=== PATIENT | male | born 1960 | race Caucasian/White ===

== ENCOUNTER 2018-04-29 05:53 | Emergency (ER) | payer MEDICAID ==
[~2018-04-29] VITALS: Ht 157.5 cm; Wt 45.9 kg
[~2018-04-29 05:53] MED LIST: LEVO50TA PO; LEVO50TA8 PO; OMEP20TA5 PO; ONDA4TAB6 PO
[2018-04-29 05:59] VITALS: BP 130/75
[2018-04-29] MEDS ORDERED: ondansetron 4mg rapidly disintigrating tab PO ONE (06:25)
[2018-04-29] MEDS ORDERED: acetaminophen 325mg tablet PO ONE (06:25)
== END 2018-04-29 06:46 | disposition home or self-care (01) ==
LOC: ER 05:54
DX: R11.0 Nausea (principal); E86.0 Dehydration; M79.1 Myalgia; E03.9 Hypothyroidism, unspecified; G89.29 Other chronic pain; Z79.899 Other long term (current) drug therapy; Z60.2 Problems related to living alone
CPT/HCPCS: 99283

== ENCOUNTER 2018-05-09 03:31 | Emergency (ER) | payer MEDICAID ==
[~2018-05-09] VITALS: Ht 157.5 cm; Wt 44.1 kg
[2018-05-09] MEDS ORDERED: GABA-532 PO (04:26)
[2018-05-09] MEDS ORDERED: CARV-50 PO (04:26)
[2018-05-09] MEDS ORDERED: KEP500T PO (04:26)
[2018-05-09] MEDS ORDERED: AMLO-93 PO (04:26)
[2018-05-09 06:56] LABS: BASOPHILS % (AUTO) 0.5 % (0-1); EOSINOPHILS # (AUTO) 0.2 X10'3 (0-0.9); EOSINOPHILS % (AUTO) 1.7 % (0-6); HEMATOCRIT 44.8 % (42.0-52.0); HEMOGLOBIN 15.5 g/dl (14.0-17.9); LYMPHOCYTES # (AUTO) 2.4 X10'3 (1.1-4.8); LYMPHOCYTES % (AUTO) 25.7 % (21-51); MEAN CORPUSCULAR HEMOGLOBIN 32.1 PG (27.0-31.0); MEAN CORPUSCULAR HGB CONC 34.6 % (33.0-36.5); MEAN CORPUSCULAR VOLUME 92.8 FL (78-98); MEAN PLATELET VOLUME 6.7 FL (7.4-10.4); MONOCYTES # (AUTO) 0.5 X10'3 (0-0.9); MONOCYTES % (AUTO) 5.1 % (2-12); NEUTROPHILS # (AUTO) 6.3 X10'3 (1.8-7.7); PLATELET COUNT 371 X10'3 (140-440); RED BLOOD COUNT 4.83 X10'6 (4.70-6.10); RED CELL DISTRIBUTION WIDTH 13.9 % (11.5-14.5); WHITE BLOOD COUNT 9.4 X10'3 (4.5-11.0)
[2018-05-09 07:10] LABS: ALANINE AMINOTRANSFERASE 39 U/L (12-78); ALBUMIN 4.1 G/DL (3.4-5.0); ALBUMIN/GLOBULIN RATIO 0.9 (1.1-1.5); ALKALINE PHOSPHATASE 59 IU/L (46-116); ANION GAP 11 (8-16); ASPARTATE AMINO TRANSFERASE 34 U/L (10-37); BILIRUBIN,TOTAL 0.9 MG/DL (0.1-1.0); BLOOD UREA NITROGEN 25 MG/DL (7-18); BUN/CREATININE RATIO 22.3 (5.4-32.0); CALCIUM 8.8 MG/DL (8.5-10.1); CHLORIDE 89 MMOL/L (99-107); CREATININE 1.12 MG/DL (0.60-1.10); GLUCOSE 68 MG/DL (70-104); LIPASE 111 U/L (73-393); POTASSIUM 3.5 MMOL/L (3.5-5.1); SODIUM 127 MMOL/L (135-145); TOTAL CARBON DIOXIDE 27.5 MMOL/L (24-32); TOTAL PROTEIN 8.9 G/DL (6.4-8.2); eGFR 68 ML/MIN
[2018-05-09] MEDS ORDERED: normal saline 1000ML IV soln IVB ONE (07:40)
[2018-05-09 10:04] VITALS: BP 138/77
== END 2018-05-09 10:06 | disposition home or self-care (01) ==
LOC: ER 03:32
DX: E87.1 Hypo-osmolality and hyponatremia (principal); R10.9 Unspecified abdominal pain; F17.200 Nicotine dependence, unspecified, uncomplicated; I10 Essential (primary) hypertension; E03.9 Hypothyroidism, unspecified; G89.29 Other chronic pain; Z79.899 Other long term (current) drug therapy; Z60.2 Problems related to living alone
CPT/HCPCS: 36415; 80053; 83690; 85025; 96360; 99284; J7030

== ENCOUNTER 2018-08-26 23:11 | Emergency (ER) | payer MEDICAID ==
[~2018-08-26] VITALS: Ht 157.5 cm; Wt 51.0 kg
[~2018-08-26 23:11] MED LIST changes: +AMLO-93 PO; +CARV-50 PO; +GABA-532 PO; +KEP500T PO; -LEVO50TA PO; -LEVO50TA8 PO; -OMEP20TA5 PO; -ONDA4TAB6 PO; +PERM60CR19 TP
[2018-08-26 23:13] VITALS: BP 140/93
== END 2018-08-26 23:42 | disposition home or self-care (01) ==
LOC: ER 23:12
DX: B86 Scabies (principal); I10 Essential (primary) hypertension; E03.9 Hypothyroidism, unspecified; G89.29 Other chronic pain
CPT/HCPCS: 99281

== ENCOUNTER 2018-09-24 08:06 | Emergency (ER) | payer MEDICAID ==
[~2018-09-24] VITALS: Ht 157.5 cm; Wt 49.8 kg
[2018-09-24 08:14] VITALS: BP 156/84
[2018-09-24] MEDS ORDERED: acetaminophen 325mg tablet PO ONE (08:50)
[2018-09-24] MEDS ORDERED: orphenadrine citrate 60mg/2ml inj. IM ONE (08:50)
[2018-09-24] MEDS ORDERED: ketorolac trometh inj. 60 MG/2 ML VIAL IM ONE (08:50)
[2018-09-24 09:58] LABS: CLARITY,URINE CLEAR (Clear); COLOR,URINE YELLOW (Yellow); GLUCOSE, URINE NEGATIVE (Neg); KETONES,URINE NEGATIVE (Neg); LEUKOCYTE ESTERASE ,URINE NEGATIVE (Neg); NITRITES, URINE NEGATIVE (Neg); OCCULT BLOOD,URINE TRACE-LYSED (Neg); PROTEIN,URINE NEGATIVE (Neg); UROBILINOGEN,URINE 0.2 E.U/dL (0.2-1.0)
[2018-09-24 10:01] LABS: UA COLLECTION TYPE URINAL
[2018-09-24 10:08] LABS: BACTERIA,URINE NONE SEEN /HPF (Neg); RBC,URINE 0-2 /HPF (0-2); SQUAMOUS EPITHELIAL CELL,UR FEW /LPF (FEW); WBC,URINE NONE SEEN /HPF (0-4)
[2018-09-24] MEDS ORDERED: IBUP-1984 PO (10:28)
[2018-09-24] MEDS ORDERED: CYCL-1 PO (10:28)
[2018-09-24] MEDS ORDERED: ACET-2615 PO (10:28)
== END 2018-09-24 10:51 | disposition home or self-care (01) ==
LOC: ER 08:06
DX: M54.5 Low back pain (principal); I10 Essential (primary) hypertension; E03.9 Hypothyroidism, unspecified; G89.29 Other chronic pain; Z60.2 Problems related to living alone
CPT/HCPCS: 81001; 96372; 99283; J1885; J2360

== ENCOUNTER 2018-11-28 08:48 | Emergency (ER) | payer MEDICAID ==
[~2018-11-28] VITALS: Ht 157.5 cm; Wt 70.0 kg
[~2018-11-28 08:48] MED LIST changes: -AMLO-93 PO; -CARV-50 PO; +CYCL-1 PO; -KEP500T PO; -PERM60CR19 TP
[2018-11-28 09:02] VITALS: BP 119/78
--- NOTE | 2018-11-28 09:20 | NUR ---
PT SLEEPING LAYING ON HIS LEFT SIDE, RESPIRATIONS EVEN AND UNLABORED. NO DISTRES NOTED AT THIS TIME.
--- NOTE | 2018-11-28 10:30 | NUR ---
PT SLEEPING LAYING ON HIS LEFT SIDE, RESPIRATIONS EVEN AND UNLABORED. NO DISTRESS NOTED AT THIS TIME.
--- NOTE | 2018-11-28 10:54 | NUR ---
PT IS TRYING TO THROW HIMSELF ON THE FLOOR, STUDENT SUCCESS COUNSELORLEI HENDRICKSON AT BEDSIDE CLEANING UP PT'S FACE. PT IS VOICING DISAPPROVAL, YELLING AT [place]. SIDE RAILS ON THE BED ARE UP AND IN LOCKED POSITION.
--- NOTE | 2018-11-28 11:17 | NUR ---
PT SLEEPING AGAIN, RESPIRATIONS EVEN AND UNALBORED. NO DISTRESS NOTED AT THIS TIME.
== END 2018-11-28 11:35 | disposition home or self-care (01) ==
LOC: ER 08:48
DX: S00.12XA Contusion of left eyelid and periocular area, initial encounter (principal); R22.0 Localized swelling, mass and lump, head; R56.9 Unspecified convulsions; I10 Essential (primary) hypertension; E03.9 Hypothyroidism, unspecified; G89.29 Other chronic pain; F12.90 Cannabis use, unspecified, uncomplicated; Z79.899 Other long term (current) drug therapy; Z60.2 Problems related to living alone; W19.XXXA Unspecified fall, initial encounter; Y93.89 Activity, other specified; Y92.89 Other specified places as the place of occurrence of the external cause; Y99.8 Other external cause status
CPT/HCPCS: 99284

== ENCOUNTER 2018-12-08 10:12 | Emergency (ER) | payer MEDICAID ==
[~2018-12-08] VITALS: Ht 157.5 cm; Wt 48.0 kg
[2018-12-08 10:29] VITALS: BP 174/112
[2018-12-08] MEDS ORDERED: ketorolac trometh. 30mg/ml inj. IM ONE (11:45)
== END 2018-12-08 12:13 | disposition home or self-care (01) ==
LOC: ER 10:12
DX: S60.420A Blister (nonthermal) of right index finger, initial encounter (principal); L08.9 Local infection of the skin and subcutaneous tissue, unspecified; M54.9 Dorsalgia, unspecified; G89.29 Other chronic pain; I10 Essential (primary) hypertension; E03.9 Hypothyroidism, unspecified; F12.90 Cannabis use, unspecified, uncomplicated; Z79.899 Other long term (current) drug therapy; Z60.2 Problems related to living alone; X58.XXXA Exposure to other specified factors, initial encounter; Y93.89 Activity, other specified; Y92.89 Other specified places as the place of occurrence of the external cause; Y99.8 Other external cause status
CPT/HCPCS: 96372; 99283; J1885

== ENCOUNTER 2019-01-12 09:31 | Emergency (ER) | payer MEDICAID ==
[~2019-01-12] VITALS: Ht 157.5 cm; Wt 50.0 kg
[2019-01-12] MEDS ORDERED: pseudoephedrine 30mg tablet PO ONE (09:55)
[2019-01-12 10:07] VITALS: BP 161/95
== END 2019-01-12 10:12 | disposition home or self-care (01) ==
LOC: ER 09:31
DX: R09.81 Nasal congestion (principal); I10 Essential (primary) hypertension; E03.9 Hypothyroidism, unspecified; G89.29 Other chronic pain; F17.200 Nicotine dependence, unspecified, uncomplicated; F12.90 Cannabis use, unspecified, uncomplicated
CPT/HCPCS: 99282

== ENCOUNTER 2019-01-24 10:32 | Emergency (ER) | payer MEDICAID ==
[~2019-01-24] VITALS: Ht 157.5 cm; Wt 50.0 kg
[2019-01-24 11:09] VITALS: BP 203/103
[2019-01-24] MEDS ORDERED: ketorolac tromethamine 15mg/ml inj. IM ONE (11:55)
== END 2019-01-24 12:18 | disposition home or self-care (01) ==
LOC: ER 10:32
DX: G89.29 Other chronic pain (principal); M54.5 Low back pain; M79.644 Pain in right finger(s); I10 Essential (primary) hypertension; E03.9 Hypothyroidism, unspecified; F12.90 Cannabis use, unspecified, uncomplicated; Z60.2 Problems related to living alone; Z79.899 Other long term (current) drug therapy
CPT/HCPCS: 96372; 99283; J1885

== ENCOUNTER 2019-05-13 10:22 | Emergency (ER) | payer MEDICAID ==
[~2019-05-13] VITALS: Ht 157.5 cm; Wt 45.5 kg
[~2019-05-13 10:22] MED LIST changes: -CYCL-1 PO; +LEVO50TA8 PO; +MELO-102 PO; +PANT40TA4 PO
[2019-05-13 11:28] LABS: BASOPHILS # (AUTO) 0.1 X10'3 (0-0.2); BASOPHILS % (AUTO) 0.5 % (0-1); EOSINOPHILS % (AUTO) 0.3 % (0-6); HEMATOCRIT 43.6 % (42.0-52.0); LYMPHOCYTES # (AUTO) 1.8 X10'3 (1.1-4.8); LYMPHOCYTES % (AUTO) 17.4 % (21-51); MEAN CORPUSCULAR HEMOGLOBIN 32.2 PG (27.0-31.0); MEAN CORPUSCULAR HGB CONC 34.3 g/dL (33.0-36.5); MEAN PLATELET VOLUME 6.8 FL (7.4-10.4); MONOCYTES # (AUTO) 1.1 X10'3 (0-0.9); MONOCYTES % (AUTO) 10.8 % (2-12); NEUTROPHILS # (AUTO) 7.4 X10'3 (1.8-7.7); PLATELET COUNT 304 X10'3 (140-440); RED BLOOD COUNT 4.64 X10'6 (4.70-6.10); RED CELL DISTRIBUTION WIDTH 13.7 % (11.5-14.5); WHITE BLOOD COUNT 10.4 X10'3 (4.5-11.0)
[2019-05-13 11:45] LABS: ALANINE AMINOTRANSFERASE 39 U/L (12-78); ALBUMIN 3.7 G/DL (3.4-5.0); ALBUMIN/GLOBULIN RATIO 0.8 (1.1-1.5); ALKALINE PHOSPHATASE 68 IU/L (46-116); AMYLASE 137 U/L (25-115); ANION GAP 10 (8-16); ASPARTATE AMINO TRANSFERASE 64 U/L (10-37); BILIRUBIN,TOTAL 0.4 MG/DL (0.1-1.0); BLOOD UREA NITROGEN 33 MG/DL (7-18); BUN/CREATININE RATIO 29.7 (5.4-32.0); CALCIUM 9.8 MG/DL (8.5-10.1); CHLORIDE 88 MMOL/L (99-107); CREATININE 1.11 MG/DL (0.60-1.10); GLUCOSE 106 MG/DL (70-104); LIPASE 186 U/L (73-393); POTASSIUM 4.1 MMOL/L (3.5-5.1); SODIUM 125 MMOL/L (135-145); TOTAL CARBON DIOXIDE 26.8 MMOL/L (24-32); TOTAL PROTEIN 8.6 G/DL (6.4-8.2); eGFR 68 ML/MIN
[2019-05-13] MEDS ORDERED: normal saline 1000ML IV soln IVB ONE (11:50)
[2019-05-13 13:54] VITALS: BP 132/86
[2019-05-13 14:53] LABS: CLARITY,URINE CLEAR (Clear); COLOR,URINE STRAW (Yellow); GLUCOSE, URINE NEGATIVE (Neg); KETONES,URINE NEGATIVE (Neg); LEUKOCYTE ESTERASE ,URINE NEGATIVE (Neg); NITRITES, URINE NEGATIVE (Neg); OCCULT BLOOD,URINE MODERATE (Neg); PROTEIN,URINE NEGATIVE (Neg); UROBILINOGEN,URINE 0.2 E.U/dL (0.2-1.0)
[2019-05-13 15:02] LABS: UA COLLECTION TYPE CLN CATCH MIDSTREAM
[2019-05-13 15:05] LABS: BACTERIA,URINE NONE SEEN /HPF (Neg); RBC,URINE 0-2 /HPF (0-2); SQUAMOUS EPITHELIAL CELL,UR FEW /LPF (FEW); WBC,URINE NONE SEEN /HPF (0-4)
== END 2019-05-13 14:17 | disposition home or self-care (01) ==
LOC: ER 10:23
DX: E86.0 Dehydration (principal); R10.13 Epigastric pain; I10 Essential (primary) hypertension; E03.9 Hypothyroidism, unspecified; G89.29 Other chronic pain; F12.90 Cannabis use, unspecified, uncomplicated; Z79.899 Other long term (current) drug therapy
CPT/HCPCS: 36415; 80053; 81001; 82150; 83690; 85025; 85610; 96360; 96361; 99283; J7030

== ENCOUNTER 2019-05-16 07:07 | Emergency (ER) | payer MEDICAID ==
[~2019-05-16] VITALS: Ht 157.5 cm; Wt 46.0 kg
[2019-05-16 07:51] LABS: CLARITY,URINE CLEAR (Clear); COLOR,URINE YELLOW (Yellow); GLUCOSE, URINE NEGATIVE (Neg); KETONES,URINE NEGATIVE (Neg); LEUKOCYTE ESTERASE ,URINE NEGATIVE (Neg); NITRITES, URINE NEGATIVE (Neg); OCCULT BLOOD,URINE TRACE-LYSED (Neg); PH,URINE 6.5 (4.8-8.0); PROTEIN,URINE TRACE mg/dl (Neg); UROBILINOGEN,URINE 0.2 E.U/dL (0.2-1.0)
[2019-05-16 07:52] LABS: UA COLLECTION TYPE CLN CATCH MIDSTREAM
[2019-05-16 07:57] LABS: SQUAMOUS EPITHELIAL CELL,UR FEW /LPF (FEW)
[2019-05-16 07:58] LABS: HYALINE CASTS 0-3 /LPF (NEGATIVE); TRANSITIONAL EPI CELLS,URINE FEW /HPF
[2019-05-16 08:00] LABS: BACTERIA,URINE FEW /HPF (Neg)
[2019-05-16 08:01] LABS: WBC,URINE 0-4 /HPF (0-4)
[2019-05-16] MEDS ORDERED: normal saline 1000ml 1,000 ML IV ONE (08:30)
[2019-05-16 08:59] LABS: BASOPHILS % (AUTO) 0.2 % (0-1); EOSINOPHILS # (AUTO) 0.2 X10'3 (0-0.9); EOSINOPHILS % (AUTO) 1.6 % (0-6); HEMATOCRIT 42.2 % (42.0-52.0); HEMOGLOBIN 14.2 g/dl (14.0-17.9); LYMPHOCYTES # (AUTO) 0.9 X10'3 (1.1-4.8); LYMPHOCYTES % (AUTO) 6.6 % (21-51); MEAN CORPUSCULAR HEMOGLOBIN 31.7 PG (27.0-31.0); MEAN CORPUSCULAR HGB CONC 33.6 g/dL (33.0-36.5); MEAN CORPUSCULAR VOLUME 94.5 FL (78-98); MEAN PLATELET VOLUME 6.7 FL (7.4-10.4); MONOCYTES # (AUTO) 0.5 X10'3 (0-0.9); MONOCYTES % (AUTO) 3.7 % (2-12); NEUTROPHILS # (AUTO) 12.3 X10'3 (1.8-7.7); NEUTROPHILS % (AUTO) 87.9 % (42-75); PLATELET COUNT 355 X10'3 (140-440); RED BLOOD COUNT 4.46 X10'6 (4.70-6.10); RED CELL DISTRIBUTION WIDTH 13.7 % (11.5-14.5)
[2019-05-16 09:10] LABS: ALANINE AMINOTRANSFERASE 32 U/L (12-78); ALBUMIN 3.4 G/DL (3.4-5.0); ALBUMIN/GLOBULIN RATIO 0.8 (1.1-1.5); ALKALINE PHOSPHATASE 64 IU/L (46-116); ANION GAP 6 (8-16); ASPARTATE AMINO TRANSFERASE 27 U/L (10-37); BILIRUBIN,TOTAL 0.4 MG/DL (0.1-1.0); BLOOD UREA NITROGEN 15 MG/DL (7-18); BUN/CREATININE RATIO 14.2 (5.4-32.0); CALCIUM 8.6 MG/DL (8.5-10.1); CHLORIDE 102 MMOL/L (99-107); CREATININE 1.06 MG/DL (0.60-1.10); GLUCOSE 83 MG/DL (70-104); LIPASE 235 U/L (73-393); SODIUM 139 MMOL/L (135-145); TOTAL CARBON DIOXIDE 31.2 MMOL/L (24-32); TOTAL PROTEIN 7.6 G/DL (6.4-8.2); eGFR 72 ML/MIN
[2019-05-16 10:18] VITALS: BP 164/102
== END 2019-05-16 10:23 | disposition home or self-care (01) ==
LOC: ER 07:08
DX: E86.0 Dehydration (principal); R11.2 Nausea with vomiting, unspecified; R19.7 Diarrhea, unspecified; R10.9 Unspecified abdominal pain; I10 Essential (primary) hypertension; E03.9 Hypothyroidism, unspecified; G89.29 Other chronic pain; F12.90 Cannabis use, unspecified, uncomplicated; Z79.899 Other long term (current) drug therapy; Z60.2 Problems related to living alone
CPT/HCPCS: 36415; 80053; 81001; 83690; 85025; 85610; 96360; 99284; J7030

== ENCOUNTER 2019-06-07 19:46 | Emergency (ER) | payer MEDICAID ==
[~2019-06-07] VITALS: Ht 157.5 cm; Wt 46.4 kg
[2019-06-07] MEDS ORDERED: ondansetron/PF 4mg/2ml inj IV ONE (20:05)
[2019-06-07] MEDS ORDERED: normal saline 1000ML IV soln IVB ONE (20:05)
[2019-06-07] MEDS ORDERED: LEVO50TA PO ×2 (20:19→20:21)
[2019-06-07] MEDS ORDERED: SYN0.088T PO (20:19)
[2019-06-07] MEDS ORDERED: GABA-532 PO (20:21)
[2019-06-07 20:27] LABS: BASOPHILS # (AUTO) 0.1 X10'3 (0-0.2); BASOPHILS % (AUTO) 1.2 % (0-1); EOSINOPHILS # (AUTO) 0.3 X10'3 (0-0.9); EOSINOPHILS % (AUTO) 3.2 % (0-6); HEMATOCRIT 35.4 % (42.0-52.0); HEMOGLOBIN 12.1 g/dl (14.0-17.9); LYMPHOCYTES # (AUTO) 3.4 X10'3 (1.1-4.8); LYMPHOCYTES % (AUTO) 33.7 % (21-51); MEAN CORPUSCULAR HEMOGLOBIN 32.4 PG (27.0-31.0); MEAN CORPUSCULAR HGB CONC 34.3 g/dL (33.0-36.5); MEAN CORPUSCULAR VOLUME 94.5 FL (78-98); MEAN PLATELET VOLUME 6.7 FL (7.4-10.4); MONOCYTES # (AUTO) 0.8 X10'3 (0-0.9); MONOCYTES % (AUTO) 8.1 % (2-12); NEUTROPHILS # (AUTO) 5.5 X10'3 (1.8-7.7); NEUTROPHILS % (AUTO) 53.8 % (42-75); PLATELET COUNT 320 X10'3 (140-440); RED BLOOD COUNT 3.74 X10'6 (4.70-6.10); RED CELL DISTRIBUTION WIDTH 13.9 % (11.5-14.5); WHITE BLOOD COUNT 10.1 X10'3 (4.5-11.0)
[2019-06-07 20:38] LABS: ALANINE AMINOTRANSFERASE 28 U/L (12-78); ALBUMIN 3.2 G/DL (3.4-5.0); ALBUMIN/GLOBULIN RATIO 0.9 (1.1-1.5); ALKALINE PHOSPHATASE 52 IU/L (46-116); ANION GAP 9 (8-16); ASPARTATE AMINO TRANSFERASE 32 U/L (10-37); BILIRUBIN,TOTAL 0.6 MG/DL (0.1-1.0); BLOOD UREA NITROGEN 41 MG/DL (7-18); BUN/CREATININE RATIO 26.5 (5.4-32.0); CALCIUM 7.9 MG/DL (8.5-10.1); CHLORIDE 101 MMOL/L (99-107); CREATININE 1.55 MG/DL (0.60-1.10); GLUCOSE 86 MG/DL (70-104); SODIUM 135 MMOL/L (135-145); TOTAL PROTEIN 6.8 G/DL (6.4-8.2); eGFR 46 ML/MIN
[2019-06-07 21:27] VITALS: BP 110/58
== END 2019-06-07 21:47 | disposition home or self-care (01) ==
LOC: ER 19:47
DX: E86.0 Dehydration (principal); R68.2 Dry mouth, unspecified; R19.7 Diarrhea, unspecified; I10 Essential (primary) hypertension; E03.9 Hypothyroidism, unspecified; G89.29 Other chronic pain; R79.1 Abnormal coagulation profile; F17.200 Nicotine dependence, unspecified, uncomplicated; F12.90 Cannabis use, unspecified, uncomplicated; Z60.2 Problems related to living alone; Z86.69 Personal history of other diseases of the nervous system and sense organs; Z79.899 Other long term (current) drug therapy
CPT/HCPCS: 36415; 80053; 85025; 85610; 96361; 96374; 99283; J2405; J7030

== ENCOUNTER 2019-06-14 14:46 | Emergency (ER) | payer MEDICAID ==
[~2019-06-14] VITALS: Ht 157.5 cm; Wt 44.7 kg
[~2019-06-14 14:46] MED LIST changes: +LEVO50TA PO
[2019-06-14 16:51] VITALS: BP 177/109
== END 2019-06-14 16:55 | disposition home or self-care (01) ==
LOC: ER 14:46
DX: R25.2 Cramp and spasm (principal); R19.7 Diarrhea, unspecified; R68.2 Dry mouth, unspecified; I10 Essential (primary) hypertension; E03.9 Hypothyroidism, unspecified; G89.29 Other chronic pain; F12.90 Cannabis use, unspecified, uncomplicated; Z60.2 Problems related to living alone; Z79.899 Other long term (current) drug therapy
CPT/HCPCS: 99283

== ENCOUNTER 2019-06-24 06:49 | Emergency (ER) | payer MEDICAID ==
[~2019-06-24] VITALS: Ht 157.5 cm; Wt 43.1 kg
[2019-06-24] MEDS ORDERED: DICL25TA2 PO (07:24)
[2019-06-24] MEDS ORDERED: ketorolac trometh inj. 60 MG/2 ML VIAL IM ONE (07:25)
[2019-06-24 07:41] VITALS: BP 125/72
== END 2019-06-24 07:42 | disposition home or self-care (01) ==
LOC: ER 06:49
DX: M54.5 Low back pain (principal); I10 Essential (primary) hypertension; E03.9 Hypothyroidism, unspecified; G89.29 Other chronic pain; F12.90 Cannabis use, unspecified, uncomplicated; R68.2 Dry mouth, unspecified; Z79.899 Other long term (current) drug therapy; Z86.69 Personal history of other diseases of the nervous system and sense organs; Z60.2 Problems related to living alone
CPT/HCPCS: 96372; 99283; J1885

== ENCOUNTER 2019-08-08 13:39 | Emergency (ER) | payer MEDICAID ==
[~2019-08-08] VITALS: Ht 157.5 cm; Wt 49.1 kg
[~2019-08-08 13:39] MED LIST changes: +DICL25TA2 PO
--- NOTE | 2019-08-08 16:15 | NUR ---
pt is resting quietly on gurney, pt said he has HTN, been off "meds for years", denies headache, blurry vision, chest pain, pt is here for lower abd pain, +n/v x2 days, last bowel mvt this am,
[2019-08-08] MEDS ORDERED: ondansetron 4mg rapidly disintigrating tab PO ONE (16:20)
--- NOTE | 2019-08-08 17:11 | NUR ---
pt is resting quietly on gurney, hector PO med well, no n/v
[2019-08-08] MEDS ORDERED: ONDA4TAB12 PO (17:25)
--- NOTE | 2019-08-08 17:34 | NUR ---
Dr Carpenter aware of high BP, instructed pt to follow up with PMD
[2019-08-08 17:49] VITALS: BP 206/126
== END 2019-08-08 17:53 | disposition home or self-care (01) ==
LOC: ER 13:39
DX: R11.2 Nausea with vomiting, unspecified (principal); R10.84 Generalized abdominal pain; I10 Essential (primary) hypertension; E03.9 Hypothyroidism, unspecified; G89.29 Other chronic pain; F12.90 Cannabis use, unspecified, uncomplicated; F10.99 Alcohol use, unspecified with unspecified alcohol-induced disorder; Z86.69 Personal history of other diseases of the nervous system and sense organs; Z60.2 Problems related to living alone; Z79.899 Other long term (current) drug therapy; Y90.9 Presence of alcohol in blood, level not specified
CPT/HCPCS: 99283

== ENCOUNTER 2019-08-23 19:41 | Inpatient (IN) | payer MEDICAID ==
[~2019-08-23] VITALS: Ht 157.5 cm; Wt 45.0 kg
[~2019-08-23 19:41] MED LIST changes: +ONDA4TAB12 PO
[2019-08-23 20:32] LABS: BASOPHILS % (AUTO) 0.1 % (0-1); EOSINOPHILS % (AUTO) 0 % (0-6); HEMATOCRIT 44.3 % (42.0-52.0); HEMOGLOBIN 15.4 g/dl (14.0-17.9); LYMPHOCYTES % (AUTO) 12.9 % (21-51); MEAN CORPUSCULAR HEMOGLOBIN 32.6 PG (27.0-31.0); MEAN CORPUSCULAR HGB CONC 34.7 g/dL (33.0-36.5); MEAN CORPUSCULAR VOLUME 94.2 FL (78-98); MEAN PLATELET VOLUME 6.8 FL (7.4-10.4); MONOCYTES # (AUTO) 1.2 X10'3 (0-0.9); PLATELET COUNT 510 X10'3 (140-440); RED CELL DISTRIBUTION WIDTH 14.2 % (11.5-14.5); WHITE BLOOD COUNT 15.3 X10'3 (4.5-11.0)
[2019-08-23 20:38] LABS: ALANINE AMINOTRANSFERASE 40 U/L (12-78); ALBUMIN 4.6 G/DL (3.4-5.0); ALBUMIN/GLOBULIN RATIO 0.8 (1.1-1.5); ALKALINE PHOSPHATASE 77 IU/L (46-116); ANION GAP 12 (8-16); ASPARTATE AMINO TRANSFERASE 51 U/L (10-37); BILIRUBIN,TOTAL 0.6 MG/DL (0.1-1.0); BLOOD UREA NITROGEN 34 MG/DL (7-18); BUN/CREATININE RATIO 17.5 (5.4-32.0); CHLORIDE 90 MMOL/L (99-107); CREATININE 1.94 MG/DL (0.60-1.10); GLUCOSE 131 MG/DL (70-104); POTASSIUM 4.2 MMOL/L (3.5-5.1); SODIUM 139 MMOL/L (135-145); TOTAL CARBON DIOXIDE 36.7 MMOL/L (24-32); TOTAL PROTEIN 10.4 G/DL (6.4-8.2); eGFR 36 ML/MIN
[2019-08-23 20:41] LABS: CALCIUM 12.9 MG/DL (8.5-10.1)
--- NOTE | 2019-08-23 21:40 | NUR ---
MAGRARET GARRISON MADE AWARE OF PT BP. NO NEW ORDERS AT THIS TIME. WILL CONTINUE TO MONTIOR.
[2019-08-23] MEDS ORDERED: ringers solution, lacted 1,000 ML IV ONE ×2 (21:55)
--- NOTE | 2019-08-23 22:04 | NUR ---
RELIEVING RN FOR BREAK, PT IS RESTING QUIETLY ON GURNEY, RESP EVEN AND UNLABORED, 1 LITER LR INFUSING W/O
[2019-08-23 22:09] LABS: ETHANOL < 0.010 GM/DL (0.0-0.010); LIPASE 168 U/L (73-393)
[2019-08-23 22:13] LABS: CLARITY,URINE SLIGHTLY CLOUDY (Clear); COLOR,URINE YELLOW (Yellow); GLUCOSE, URINE NEGATIVE (Neg); KETONES,URINE NEGATIVE (Neg); LEUKOCYTE ESTERASE ,URINE NEGATIVE (Neg); NITRITES, URINE NEGATIVE (Neg); OCCULT BLOOD,URINE SMALL (Neg); PROTEIN,URINE 100 mg/dl (Neg); UROBILINOGEN,URINE 0.2 E.U/dL (0.2-1.0)
[2019-08-23 22:16] LABS: URINE AMPHETAMINE SCREEN POSITIVE (Neg); URINE BARBITUATE SCREEN NEGATIVE (Neg); URINE BENZODIAZEPINES SCREEN NEGATIVE (Neg); URINE CANNABINOID SCREEN POSITIVE (Neg); URINE COCAINE SCREEN NEGATIVE (Neg); URINE METHADONE SCREEN NEGATIVE (Neg); URINE OPIATE SCREEN NEGATIVE (Neg); URINE PHENCYCLIDINE SCREEN NEGATIVE (Neg)
[2019-08-23 22:24] LABS: UA COLLECTION TYPE URINAL
[2019-08-23 22:26] LABS: AMORPHOUS PHOSPHATES 2+; BACTERIA,URINE NONE SEEN /HPF (Neg); HYALINE CASTS 0-3 /LPF (NEGATIVE); MUCUS STRANDS NONE SEEN /LPF (Neg); RBC,URINE 0-2 /HPF (0-2); SQUAMOUS EPITHELIAL CELL,UR NONE SEEN /LPF (FEW); WBC,URINE 0-4 /HPF (0-4)
--- NOTE | 2019-08-23 22:30 | NUR ---
MARGARET GARRISON AWARE OF PT CONTINUED HIGH BP. CHARGE NURSE ROCÍO RN MADE AWARE OF SITUATION. NO NEW ORDERS OR MEDICATIONS AT THIS TIME. WILL CONTINUE TO MONITOR PT. PT IS TOLERATING BP WELL; SLEEPING WITHOUT ANY COMPLAINTS.
--- NOTE | 2019-08-23 23:27 | NUR ---
EDCT GARRISON AWARE OF CONTINUOUS HIGH BP. NO NEW ORDERS. WILL CONTINUE TO MONITOR.
[2019-08-23] MEDS ORDERED: amLODIPine 5mg tablet PO ONE (23:40)
[2019-08-23] MEDS ORDERED: HYDROcodone/acetaminophen 5mg/325mg tablet PO PRN (23:40)
[2019-08-23] MEDS ORDERED: morphine 2 MG/ML inj. syringe IV PRN (23:40)
[2019-08-23] MEDS ORDERED: acetaminophen 325mg tablet PO PRN ×2 (23:40)
[2019-08-23] MEDS ORDERED: ondansetron/PF 4mg/2ml inj IV PRN (23:40)
[2019-08-23] MEDS ORDERED: magnesium hydroxide 30ml (MOM) UD suspension PO PRN (23:40)
--- NOTE | 2019-08-23 23:51 | NUR ---
RELIEVING RN FOR LUNCH, PT IS SLEEPING, EASILY AROUSEABLE, JULIETA PO MED WELL, NO N/V
[2019-08-24] VITALS (9 sets, daily range): BP systolic 114–166; BP diastolic 54–113
[2019-08-24] MEDS: normal saline 1000ml 1,000 ML IV SCH ×3 (00:01→19:36)
[2019-08-24] MEDS: mag hydrox/Alum hydrox/simeth 30ml oral suspension PO PRN ×2 (00:01→02:53)
[2019-08-24] MEDS: furosemide 20 MG/2 ML vial IV SCH ×3 (00:01→20:25)
[2019-08-24 00:17] LABS: PHOSPHORUS 7.1 MG/DL (2.3-4.5)
--- NOTE | 2019-08-24 00:20 | NUR ---
MOISES DARLING FOR HEMOCCULT TEST.
--- NOTE | 2019-08-24 00:58 | NUR ---
CALLED DR CONNELLY REGARDING PT BP 185/105. RECEIVED VERBAL ORDER FOR CLONIDINE 0.1MG PO X1 DOSE NOW. ORDERED.
[2019-08-24] MEDS ORDERED: cloNIDine 0.1 mg tablet PO ONE ×2 (01:00→03:35)
[2019-08-24] MEDS: HYDROcodone/acetaminophen 10/325mg tab PO PRN ×2 (02:20→20:39)
--- NOTE | 2019-08-24 02:48 | NUR ---
PT HAD EPISODE OF EMESIS. NORCO IDENTIFIED IN EMESIS CONTENTS.
[2019-08-24] MEDS: morphine 2 MG/ML inj. syringe IV PRN (02:54)
--- NOTE | 2019-08-24 03:31 | NUR ---
CALLED DR CONNELLY REGARDING PT CONTINUED HIGH BP 194/117. RECEIVED VERBAL ORDER FOR CLONIDINE 0.1MG PO X1 DOSE NOW. ORDERED.
--- NOTE | 2019-08-24 04:30 | NUR ---
Patient in room ED 3. I have received report from Natalie ARAUZ and had the opportunity to ask questions and assume patient care.
--- NOTE | 2019-08-24 04:45 | NUR ---
Pt. arrived via gurney in no acute distress. Amb to bed fr/hallway, steady gait. Oriented to bed, room, surroundings, and POC. VS stable except f/high BP: 166/113. Pt denies, BRIGHT, chest pain, and dizziness. States has chronic back pain and prefers to lay flat while in bed. Water given and enc to drink sml amt due to nausea earlier in NOC.
--- NOTE | 2019-08-24 06:00 | NUR ---
Patient in room PCU 3028B. I have received report from Rhina ARAUZ and had the opportunity to ask questions and assume patient care.
[2019-08-24] MEDS ORDERED: hydrALAZINE 20mg/ml inj. IV PRN (06:05)
[2019-08-24 06:47] LABS: BASOPHILS # (AUTO) 0.1 X10'3 (0-0.2); BASOPHILS % (AUTO) 0.5 % (0-1); EOSINOPHILS % (AUTO) 0.1 % (0-6); HEMATOCRIT 44.9 % (42.0-52.0); HEMOGLOBIN 15.3 g/dl (14.0-17.9); LYMPHOCYTES # (AUTO) 1.7 X10'3 (1.1-4.8); MEAN CORPUSCULAR HEMOGLOBIN 32.1 PG (27.0-31.0); MEAN CORPUSCULAR HGB CONC 34.1 g/dL (33.0-36.5); MEAN CORPUSCULAR VOLUME 94.1 FL (78-98); MEAN PLATELET VOLUME 6.9 FL (7.4-10.4); MONOCYTES # (AUTO) 1.5 X10'3 (0-0.9); MONOCYTES % (AUTO) 9.6 % (2-12); NEUTROPHILS # (AUTO) 12.1 X10'3 (1.8-7.7); NEUTROPHILS % (AUTO) 78.8 % (42-75); PLATELET COUNT 467 X10'3 (140-440); RED BLOOD COUNT 4.77 X10'6 (4.70-6.10); RED CELL DISTRIBUTION WIDTH 13.9 % (11.5-14.5); WHITE BLOOD COUNT 15.3 X10'3 (4.5-11.0)
--- NOTE | 2019-08-24 06:52 | NUR ---
Problems reprioritized. Patient report given, questions answered & plan of care reviewed with Elise ARAUZ.
[2019-08-24 06:54] LABS: ALBUMIN 4.1 G/DL (3.4-5.0); ANION GAP 10 (8-16); BLOOD UREA NITROGEN 39 MG/DL (7-18); BUN/CREATININE RATIO 22.4 (5.4-32.0); CALCIUM 11.6 MG/DL (8.5-10.1); CHLORIDE 92 MMOL/L (99-107); CREATININE 1.74 MG/DL (0.60-1.10); GLUCOSE 118 MG/DL (70-104); POTASSIUM 3.4 MMOL/L (3.5-5.1); SODIUM 139 MMOL/L (135-145); TOTAL CARBON DIOXIDE 37.3 MMOL/L (24-32); eGFR 41 ML/MIN
[2019-08-24] MEDS ORDERED: levoTHYROXINE 25mcg tablet PO SCH (07:00)
[2019-08-24] MEDS ORDERED: calcitonin,salmon synthetic 200 units/ml inj SQ SCH (08:00)
[2019-08-24] MEDS: levoTHYROXINE 25mcg tablet PO SCH (09:10)
[2019-08-24] MEDS: gabapentin 300mg capsule PO SCH ×3 (09:10→20:25)
[2019-08-24] MEDS: pantoprazole 40mg Tablet.DR PO SCH (09:11)
[2019-08-24] MEDS: cloNIDine 0.1 mg tablet PO SCH ×2 (09:12→16:19)
[2019-08-24] MEDS: heparin, porcine 5000 units/ml vial SQ SCH ×2 (09:13→20:25)
[2019-08-24] MEDS ORDERED: potassium CL 10mEq/100ml bag 100 ML IV PRN (09:45)
[2019-08-24] MEDS ORDERED: magnesium 4gm in 100ml NS 100 ML IV PRN (09:45)
[2019-08-24] MEDS ORDERED: magnesium Cl slow-release 64mg tablet PO PRN (09:45)
[2019-08-24] MEDS ORDERED: potassium Cl 20 mEq SR tablet PO PRN (09:45)
[2019-08-24] MEDS: potassium Cl 20 mEq SR tablet PO PRN ×3 (12:16→20:40)
--- NOTE | 2019-08-24 13:04 | NUR ---
Problems reprioritized. Patient report given, questions answered & plan of care reviewed with Terrie ARAUZ.
--- NOTE | 2019-08-24 13:27 | NUR ---
RECEIVED REPORT FROM JESSICA Vanegas RN. [facility]
--- NOTE | 2019-08-24 18:09 | NUR ---
GAVE REPORT TO JERSEY ARAUZ
--- NOTE | 2019-08-24 18:49 | NUR ---
Problems reprioritized. Patient report given, questions answered & plan of care reviewed with Yvonne ARAUZ.
--- NOTE | 2019-08-24 18:49 | NUR ---
Patient in room PCU 3028. I have received report from Terrie ARAUZ and had the opportunity to ask questions and assume patient care.
--- NOTE | 2019-08-24 18:50 | NUR ---
Patient in room PCU 3028. I have received report from Piper ARAUZ and had the opportunity to ask questions and assume patient care.
[2019-08-25] VITALS (7 sets, daily range): BP systolic 97–137; BP diastolic 58–80
[2019-08-25] MEDS: HYDROcodone/acetaminophen 10/325mg tab PO PRN ×3 (03:50→21:29)
[2019-08-25 05:34] LABS: BASOPHILS # (AUTO) 0.1 X10'3 (0-0.2); BASOPHILS % (AUTO) 0.8 % (0-1); EOSINOPHILS # (AUTO) 0.1 X10'3 (0-0.9); EOSINOPHILS % (AUTO) 1.1 % (0-6); HEMATOCRIT 35.4 % (42.0-52.0); HEMOGLOBIN 12.3 g/dl (14.0-17.9); LYMPHOCYTES # (AUTO) 3.4 X10'3 (1.1-4.8); LYMPHOCYTES % (AUTO) 33.4 % (21-51); MEAN CORPUSCULAR HEMOGLOBIN 33.2 PG (27.0-31.0); MEAN CORPUSCULAR HGB CONC 34.9 g/dL (33.0-36.5); MEAN CORPUSCULAR VOLUME 95.1 FL (78-98); MEAN PLATELET VOLUME 6.9 FL (7.4-10.4); MONOCYTES # (AUTO) 0.9 X10'3 (0-0.9); MONOCYTES % (AUTO) 9.2 % (2-12); NEUTROPHILS # (AUTO) 5.6 X10'3 (1.8-7.7); NEUTROPHILS % (AUTO) 55.5 % (42-75); PLATELET COUNT 319 X10'3 (140-440); RED BLOOD COUNT 3.72 X10'6 (4.70-6.10); RED CELL DISTRIBUTION WIDTH 13.7 % (11.5-14.5); WHITE BLOOD COUNT 10.2 X10'3 (4.5-11.0)
[2019-08-25 05:36] LABS: ALBUMIN 2.8 G/DL (3.4-5.0); ANION GAP 7 (8-16); BLOOD UREA NITROGEN 55 MG/DL (7-18); BUN/CREATININE RATIO 25.8 (5.4-32.0); CALCIUM 8.2 MG/DL (8.5-10.1); CHLORIDE 101 MMOL/L (99-107); CREATININE 2.13 MG/DL (0.60-1.10); GLUCOSE 83 MG/DL (70-104); POTASSIUM 4.1 MMOL/L (3.5-5.1); SODIUM 138 MMOL/L (135-145); TOTAL CARBON DIOXIDE 30.3 MMOL/L (24-32); eGFR 32 ML/MIN
[2019-08-25] MEDS: normal saline 1000ml 1,000 ML IV SCH ×3 (05:36→19:41)
--- NOTE | 2019-08-25 06:14 | NUR ---
Problems reprioritized. Patient report given, questions answered & plan of care reviewed with Elise ARAUZ and Ellie RN.
--- NOTE | 2019-08-25 06:54 | NUR ---
Patient in room PCU 3028B. I have received report from Yvonne ARAUZ and had the opportunity to ask questions and assume patient care.
[2019-08-25] MEDS: cloNIDine 0.1 mg tablet PO SCH ×4 (07:19→23:50)
[2019-08-25] MEDS: levoTHYROXINE 25mcg tablet PO SCH (07:29)
[2019-08-25] MEDS: gabapentin 300mg capsule PO SCH ×3 (07:30→19:41)
[2019-08-25] MEDS: pantoprazole 40mg Tablet.DR PO SCH (07:30)
[2019-08-25] MEDS: furosemide 20 MG/2 ML vial IV SCH (07:31)
[2019-08-25] MEDS: heparin, porcine 5000 units/ml vial SQ SCH ×2 (07:31→19:46)
[2019-08-25] MEDS ORDERED: FLU VACC QS2019-20(6MOS UP)/PF 60 MCG/0.5 ML SYRINGE IMVAC ONE (10:00)
[2019-08-25] MEDS ORDERED: pneumococcal 23-VAL P-sac vacc 25 mcg/0.5ml vial IMVAC ONE (10:00)
--- NOTE | 2019-08-25 18:27 | NUR ---
Problems reprioritized. Patient report given, questions answered & plan of care reviewed with Raghu ARAUZ.
--- NOTE | 2019-08-25 18:37 | NUR ---
Patient in room PCU 3028. I have received report from Ellie RN and Elise RN and had the opportunity to ask questions and assume patient care. Patient awake for bedside report. NS infusing at 150 mL/hr per provider protocol. On room air and stable at this time. Will continue to monitor closely.
[2019-08-25] MEDS: naproxen 500mg tablet PO SCH (19:41)
[2019-08-26] MEDS: normal saline 1000ml 1,000 ML IV SCH ×3 (02:45→19:13)
[2019-08-26 03:00] VITALS: BP 118/76
[2019-08-26 04:59] LABS: BASOPHILS # (AUTO) 0.1 X10'3 (0-0.2); EOSINOPHILS # (AUTO) 0.2 X10'3 (0-0.9); EOSINOPHILS % (AUTO) 1.9 % (0-6); HEMATOCRIT 30.3 % (42.0-52.0); HEMOGLOBIN 10.4 g/dl (14.0-17.9); LYMPHOCYTES # (AUTO) 2.9 X10'3 (1.1-4.8); LYMPHOCYTES % (AUTO) 34.5 % (21-51); MEAN CORPUSCULAR HEMOGLOBIN 33.1 PG (27.0-31.0); MEAN CORPUSCULAR HGB CONC 34.2 g/dL (33.0-36.5); MEAN CORPUSCULAR VOLUME 96.9 FL (78-98); MEAN PLATELET VOLUME 6.9 FL (7.4-10.4); MONOCYTES # (AUTO) 0.6 X10'3 (0-0.9); MONOCYTES % (AUTO) 7.3 % (2-12); NEUTROPHILS # (AUTO) 4.6 X10'3 (1.8-7.7); NEUTROPHILS % (AUTO) 55.3 % (42-75); PLATELET COUNT 264 X10'3 (140-440); RED BLOOD COUNT 3.13 X10'6 (4.70-6.10); RED CELL DISTRIBUTION WIDTH 14.1 % (11.5-14.5); WHITE BLOOD COUNT 8.3 X10'3 (4.5-11.0)
[2019-08-26 05:13] LABS: ALBUMIN 2.4 G/DL (3.4-5.0); ANION GAP 9 (8-16); BLOOD UREA NITROGEN 51 MG/DL (7-18); BUN/CREATININE RATIO 29.1 (5.4-32.0); CALCIUM 7.8 MG/DL (8.5-10.1); CHLORIDE 104 MMOL/L (99-107); CREATININE 1.75 MG/DL (0.60-1.10); GLUCOSE 82 MG/DL (70-104); POTASSIUM 3.8 MMOL/L (3.5-5.1); SODIUM 138 MMOL/L (135-145); TOTAL CARBON DIOXIDE 25.3 MMOL/L (24-32); eGFR 40 ML/MIN
[2019-08-26 06:00] VITALS: BP 134/81
--- NOTE | 2019-08-26 06:05 | NUR ---
Patient in room PCU 3028B. I have received report from Raghu ARAUZ and had the opportunity to ask questions and assume patient care.
--- NOTE | 2019-08-26 06:08 | NUR ---
Problems reprioritized. Patient report given, questions answered & plan of care reviewed with Elise RN and REGLA Argueta.
[2019-08-26] MEDS: cloNIDine 0.1 mg tablet PO SCH ×2 (08:12→16:36)
[2019-08-26] MEDS: pantoprazole 40mg Tablet.DR PO SCH (08:12)
[2019-08-26] MEDS: naproxen 500mg tablet PO SCH ×2 (08:12→20:17)
[2019-08-26] MEDS: levoTHYROXINE 25mcg tablet PO SCH (08:12)
[2019-08-26] MEDS: heparin, porcine 5000 units/ml vial SQ SCH ×2 (08:13→20:16)
[2019-08-26] MEDS: gabapentin 300mg capsule PO SCH ×2 (08:13→20:17)
[2019-08-26 11:00] VITALS: BP 137/84
[2019-08-26 12:04] LABS: % IRON SATURATION 41 % (11-46); IRON 86 UG/DL (53-167); TOTAL IRON BINDING CAPACITY 208 UG/DL (259-388)
[2019-08-26] MEDS: HYDROcodone/acetaminophen 10/325mg tab PO PRN ×2 (14:12→20:17)
[2019-08-26 15:00] VITALS: BP 149/83
--- NOTE | 2019-08-26 17:14 | NUR ---
Problems reprioritized. Patient report given, questions answered & plan of care reviewed with Raghu ARAUZ.
[2019-08-26 17:24] LABS: OCCULT BLOOD STOOL NEGATIVE (Neg)
--- NOTE | 2019-08-26 17:31 | NUR ---
Patient in room PCU 3028b. I have received report from REGLA Olivares and had the opportunity to ask questions and assume patient care.
--- NOTE | 2019-08-26 17:58 | NUR ---
Problems reprioritized. Patient report given, questions answered & plan of care reviewed with Raghu ARAUZ.
[2019-08-26 19:00] VITALS: BP 149/65
[2019-08-26 23:00] VITALS: BP 138/81
[2019-08-27] VITALS (7 sets, daily range): BP systolic 102–200; BP diastolic 46–140
[2019-08-27] MEDS: cloNIDine 0.1 mg tablet PO SCH ×3 (00:38→16:00)
[2019-08-27] MEDS: normal saline 1000ml 1,000 ML IV SCH ×3 (01:35→19:15)
[2019-08-27 01:37] LABS: ALBUMIN 3.1 G/DL (3.4-5.0); ANION GAP 6 (8-16); BLOOD UREA NITROGEN 41 MG/DL (7-18); BUN/CREATININE RATIO 27.9 (5.4-32.0); CALCIUM 8.1 MG/DL (8.5-10.1); CHLORIDE 105 MMOL/L (99-107); CREATININE 1.47 MG/DL (0.60-1.10); GLUCOSE 84 MG/DL (70-104); POTASSIUM 4.4 MMOL/L (3.5-5.1); SODIUM 138 MMOL/L (135-145); TOTAL CARBON DIOXIDE 26.6 MMOL/L (24-32); eGFR 49 ML/MIN
[2019-08-27 01:40] LABS: BASOPHILS # (AUTO) 0.1 X10'3 (0-0.2); BASOPHILS % (AUTO) 0.9 % (0-1); EOSINOPHILS # (AUTO) 0.2 X10'3 (0-0.9); EOSINOPHILS % (AUTO) 1.7 % (0-6); HEMATOCRIT 33.5 % (42.0-52.0); HEMOGLOBIN 11.4 g/dl (14.0-17.9); LYMPHOCYTES # (AUTO) 3.5 X10'3 (1.1-4.8); LYMPHOCYTES % (AUTO) 33.6 % (21-51); MEAN CORPUSCULAR HEMOGLOBIN 32.8 PG (27.0-31.0); MEAN CORPUSCULAR HGB CONC 33.9 g/dL (33.0-36.5); MEAN CORPUSCULAR VOLUME 96.7 FL (78-98); MEAN PLATELET VOLUME 7.1 FL (7.4-10.4); MONOCYTES # (AUTO) 0.8 X10'3 (0-0.9); MONOCYTES % (AUTO) 7.4 % (2-12); NEUTROPHILS # (AUTO) 5.9 X10'3 (1.8-7.7); NEUTROPHILS % (AUTO) 56.4 % (42-75); PLATELET COUNT 271 X10'3 (140-440); RED BLOOD COUNT 3.47 X10'6 (4.70-6.10); RED CELL DISTRIBUTION WIDTH 14.2 % (11.5-14.5); WHITE BLOOD COUNT 10.5 X10'3 (4.5-11.0)
--- NOTE | 2019-08-27 02:28 | NUR ---
Received report from Jia on PCU. Patient will be coming over shortly.
--- NOTE | 2019-08-27 02:30 | NUR ---
Patient report given, questions answered & plan of care reviewed with REGLA Townsend on surgical unit. Patient will be transferred to [facility] via wheelchair. Patient belongings transferred with patient.
--- NOTE | 2019-08-27 02:45 | NUR ---
Informed that patient arrived to floor via w/c from PcU unit while this nurse was at lunch. Patient was settled into room 358B and VS collected : 97.8, 67, 20, 172//89, pain level 9.
[2019-08-27] MEDS: levoTHYROXINE 25mcg tablet PO SCH (07:51)
[2019-08-27] MEDS: naproxen 500mg tablet PO SCH ×2 (07:51→19:08)
[2019-08-27] MEDS: pantoprazole 40mg Tablet.DR PO SCH (07:51)
[2019-08-27] MEDS: gabapentin 300mg capsule PO SCH ×2 (07:52→19:08)
[2019-08-27] MEDS: heparin, porcine 5000 units/ml vial SQ SCH ×2 (07:53→19:08)
--- NOTE | 2019-08-27 10:49 | NUR ---
Patient stated he did not want to eat his breakfast because his abdomen was hurting. Addendum: 08/27/19 at 1050 by Dolores VU Amended: Links added.
[2019-08-27] MEDS: morphine 2 MG/ML inj. syringe IV PRN (15:30)
--- NOTE | 2019-08-27 17:27 | NUR ---
Patient was acting bizzarely, talking to himself, thoughts are loose, unsteady gait. A staff member called security to check his belongings. Security came and found marijuana from his belongings. Dr. Sanchez notified about this, urine toxicology/drug screen ordered
--- NOTE | 2019-08-27 18:40 | NUR ---
Problems reprioritized. Patient report given, questions answered & plan of care reviewed with Jim ARAUZ.
--- NOTE | 2019-08-27 18:41 | NUR ---
Patient in room [facility] 358. I have received report from REGLA Calvin and had the opportunity to ask questions and assume patient care.
[2019-08-27 18:50] LABS: CLARITY,URINE CLEAR (Clear); COLOR,URINE STRAW (Yellow); GLUCOSE, URINE 100 mg/dl (Neg); KETONES,URINE NEGATIVE (Neg); LEUKOCYTE ESTERASE ,URINE NEGATIVE (Neg); NITRITES, URINE NEGATIVE (Neg); OCCULT BLOOD,URINE NEGATIVE (Neg); PH,URINE 7.5 (4.8-8.0); PROTEIN,URINE NEGATIVE (Neg); UROBILINOGEN,URINE 0.2 E.U/dL (0.2-1.0)
[2019-08-27 18:58] LABS: UA COLLECTION TYPE NON-SPECIFIED
[2019-08-27 19:16] LABS: URINE AMPHETAMINE SCREEN NEGATIVE (Neg); URINE BARBITUATE SCREEN NEGATIVE (Neg); URINE BENZODIAZEPINES SCREEN NEGATIVE (Neg); URINE CANNABINOID SCREEN NEGATIVE (Neg); URINE COCAINE SCREEN NEGATIVE (Neg); URINE METHADONE SCREEN NEGATIVE (Neg); URINE OPIATE SCREEN NEGATIVE (Neg); URINE PHENCYCLIDINE SCREEN NEGATIVE (Neg)
[2019-08-27] MEDS: HYDROcodone/acetaminophen 10/325mg tab PO PRN (19:19)
[2019-08-28] VITALS: BP 141/74
[2019-08-28] MEDS: cloNIDine 0.1 mg tablet PO SCH ×2 (00:26→07:54)
[2019-08-28] MEDS: HYDROcodone/acetaminophen 10/325mg tab PO PRN ×2 (00:28→08:39)
[2019-08-28] MEDS: normal saline 1000ml 1,000 ML IV SCH ×2 (01:47→04:15)
[2019-08-28 04:53] LABS: BASOPHILS # (AUTO) 0.1 X10'3 (0-0.2); BASOPHILS % (AUTO) 0.9 % (0-1); EOSINOPHILS # (AUTO) 0.3 X10'3 (0-0.9); EOSINOPHILS % (AUTO) 3.2 % (0-6); HEMATOCRIT 33.3 % (42.0-52.0); HEMOGLOBIN 11.2 g/dl (14.0-17.9); LYMPHOCYTES # (AUTO) 2.8 X10'3 (1.1-4.8); LYMPHOCYTES % (AUTO) 26.2 % (21-51); MEAN CORPUSCULAR HEMOGLOBIN 32.6 PG (27.0-31.0); MEAN CORPUSCULAR HGB CONC 33.6 g/dL (33.0-36.5); MEAN CORPUSCULAR VOLUME 97.1 FL (78-98); MEAN PLATELET VOLUME 7.2 FL (7.4-10.4); MONOCYTES # (AUTO) 0.9 X10'3 (0-0.9); MONOCYTES % (AUTO) 7.9 % (2-12); NEUTROPHILS # (AUTO) 6.7 X10'3 (1.8-7.7); NEUTROPHILS % (AUTO) 61.8 % (42-75); PLATELET COUNT 270 X10'3 (140-440); RED BLOOD COUNT 3.42 X10'6 (4.70-6.10); RED CELL DISTRIBUTION WIDTH 14.2 % (11.5-14.5); WHITE BLOOD COUNT 10.8 X10'3 (4.5-11.0)
[2019-08-28 05:13] LABS: ALBUMIN 2.7 G/DL (3.4-5.0); ANION GAP 9 (8-16); BLOOD UREA NITROGEN 24 MG/DL (7-18); BUN/CREATININE RATIO 21.1 (5.4-32.0); CALCIUM 7.8 MG/DL (8.5-10.1); CHLORIDE 109 MMOL/L (99-107); CREATININE 1.14 MG/DL (0.60-1.10); GLUCOSE 84 MG/DL (70-104); POTASSIUM 3.8 MMOL/L (3.5-5.1); SODIUM 144 MMOL/L (135-145); TOTAL CARBON DIOXIDE 26.4 MMOL/L (24-32); eGFR 66 ML/MIN
--- NOTE | 2019-08-28 06:12 | NUR ---
Problems reprioritized. Patient report given, questions answered & plan of care reviewed with REGLA Wilks.
[2019-08-28] MEDS ORDERED: levoTHYROXINE 25mcg tablet PO SCH (07:00)
[2019-08-28 07:27] VITALS: BP 112/76
--- NOTE | 2019-08-28 07:30 | NUR ---
Contacted Dr. Sanchez regarding IV fluids that are currently running at 150 mL/hr. Dr. Sanchez asked to reduce this to 70 mL/hr.
[2019-08-28] MEDS: naproxen 500mg tablet PO SCH (07:54)
[2019-08-28] MEDS: pantoprazole 40mg Tablet.DR PO SCH (07:54)
[2019-08-28] MEDS: gabapentin 300mg capsule PO SCH (07:54)
[2019-08-28] MEDS: heparin, porcine 5000 units/ml vial SQ SCH (07:55)
[2019-08-28] MEDS ORDERED: normal saline 1000ml 1,000 ML IV SCH (08:00)
[2019-08-28 11:00] VITALS: BP 137/94
[2019-08-28] MEDS ORDERED: LEVO50TA PO (12:37)
[2019-08-28] MEDS ORDERED: LEVO25TA7 PO (12:37)
[2019-08-28] MEDS ORDERED: AMLO5TAB4 PO (12:58)
--- NOTE | 2019-08-28 14:41 | NUR ---
Initial: Pt admit with N/V and abdominal pain possibly r/t hypercalcemia. Per MD notes pt admits to excessive TUMS intake. Pt with ELDA r/t dehydration which is doing better per MD notes. Pt with low BMI of 18.1, this is stable for pt per documented wt hx. Pt denied wt loss or decreased appetite during malnutrition risk screening with RN. Pt currently on mech soft grind all diet documented with 75-100% PO intake meeting nutrient needs. No edema, wounds, or decrease in muscle strength. LBM 08/26, pt with MoM PRN last given 08/26. No nutrition diagnosis at this time. Will continue to follow. Recommendations: 1) Continue regular/mech soft/grind all diet 2) Bowel care 3) Wt per rx Addendum: 08/28/19 at [address] Amended: Links added.
--- NOTE | 2019-08-28 15:19 | NUR ---
Patient discharged with all belongings. Discharge paperwork gone over with pt. Pt given the opportunity to ask questions. Pt send with sack lunch, bus pass, and has appropriate clothing. W/C to front lobby. Rx called in to [facility] on [address] IV taken out.
--- NOTE | 2019-08-28 16:17 | NUR ---
Student documentation: I have reviewed all interventions, assessments performed and documented by Jorge ALVAREZ.
== END 2019-08-28 15:15 | disposition home or self-care (01) | DRG 469 ==
LOC: ER 19:41 → ED HOLD 23:44 → EDBEDREQ 08-24 03:45 → EDBEDREQTM 08-24 04:04 → PCU 3S 08-24 04:30 → SUR 3N 08-27 02:45
PROVIDERS: ADMIT Internal Medicine; ATTEND Internal Medicine
PROC: 3E02340 Introduction of Influenza Vaccine into Muscle, Percutaneous Approach (ICD-10-PCS; principal; 2019-08-25)
PROC: 3E0234Z Introduction of Serum, Toxoid and Vaccine into Muscle, Percutaneous Approach (ICD-10-PCS; 2019-08-25)
DX: N17.9 Acute kidney failure, unspecified (principal); R64 Cachexia; E83.39 Other disorders of phosphorus metabolism; E03.9 Hypothyroidism, unspecified; E83.52 Hypercalcemia; E86.0 Dehydration; I10 Essential (primary) hypertension; K59.00 Constipation, unspecified; Z60.2 Problems related to living alone; F17.210 Nicotine dependence, cigarettes, uncomplicated; F12.90 Cannabis use, unspecified, uncomplicated; G89.29 Other chronic pain; M54.9 Dorsalgia, unspecified; R73.9 Hyperglycemia, unspecified; Z68.1 Body mass index [BMI] 19.9 or less, adult; Z23 Encounter for immunization; Z79.899 Other long term (current) drug therapy
CPT/HCPCS: 36415; 71046; 76700; 80048; 80053; 80305; 80320; 81001; 81003; 82272; 82330; 83540; 83550; 83690; 83735; 83880; 84100; 84443; 85025; 85610; 87081; 90732; 93005; 96360; 99285; G0378; J0360; J0630; J1644; J1940; J2270; J2405; J7030; J7120

== ENCOUNTER 2020-01-27 09:55 | Emergency (ER) | payer MEDICAID ==
[~2020-01-27] VITALS: Ht 167.6 cm; Wt 50.0 kg
[~2020-01-27 09:55] MED LIST changes: +AMLO5TAB4 PO; -DICL25TA2 PO; +LEVO25TA7 PO; -LEVO50TA8 PO; -MELO-102 PO; -ONDA4TAB12 PO
[2020-01-27] MEDS ORDERED: NAPR-56 PO (10:04)
[2020-01-27] MEDS ORDERED: naproxen 500mg tablet PO ONE (10:05)
[2020-01-27 10:11] VITALS: BP 161/97
== END 2020-01-27 10:57 | disposition home or self-care (01) ==
LOC: ER 09:56
DX: M54.5 Low back pain (principal); G89.29 Other chronic pain; I10 Essential (primary) hypertension; E03.9 Hypothyroidism, unspecified; F15.90 Other stimulant use, unspecified, uncomplicated; F12.90 Cannabis use, unspecified, uncomplicated; Z86.69 Personal history of other diseases of the nervous system and sense organs; Z60.2 Problems related to living alone; Z79.899 Other long term (current) drug therapy
CPT/HCPCS: 99282

== ENCOUNTER 2020-02-14 00:06 | Emergency (ER) | payer MEDICAID ==
[~2020-02-14] VITALS: Ht 165.1 cm; Wt 54.5 kg
[~2020-02-14 00:06] MED LIST changes: +NAPR-56 PO
[2020-02-14 00:07] VITALS: BP 115/58
[2020-02-14] MEDS ORDERED: oxymetazoline 15 ML nasal spray NS ONE (00:15)
== END 2020-02-14 00:33 | disposition home or self-care (01) ==
LOC: ER 00:07
DX: J34.89 Other specified disorders of nose and nasal sinuses (principal); I10 Essential (primary) hypertension; E03.9 Hypothyroidism, unspecified; G89.29 Other chronic pain; F12.90 Cannabis use, unspecified, uncomplicated; F15.90 Other stimulant use, unspecified, uncomplicated; Z86.69 Personal history of other diseases of the nervous system and sense organs; Z60.2 Problems related to living alone; Z72.89 Other problems related to lifestyle; Z79.899 Other long term (current) drug therapy
CPT/HCPCS: 99282

== ENCOUNTER 2020-04-23 07:38 | Emergency (ER) | payer MEDICAID ==
[~2020-04-23] VITALS: Ht 157.5 cm; Wt 58.0 kg
[~2020-04-23 07:38] MED LIST changes: -NAPR-56 PO
[2020-04-23] MEDS ORDERED: ONDA4TAB12 PO (08:04)
[2020-04-23] MEDS ORDERED: ondansetron 4mg rapidly disintigrating tab PO ONE (08:05)
[2020-04-23 08:26] VITALS: BP 137/107
== END 2020-04-23 08:28 | disposition home or self-care (01) ==
LOC: ER 07:38
DX: R11.2 Nausea with vomiting, unspecified (principal); I10 Essential (primary) hypertension; E03.9 Hypothyroidism, unspecified; G89.29 Other chronic pain; E86.0 Dehydration; R25.2 Cramp and spasm; F12.90 Cannabis use, unspecified, uncomplicated; F15.90 Other stimulant use, unspecified, uncomplicated; Z86.69 Personal history of other diseases of the nervous system and sense organs; Z60.2 Problems related to living alone; Z79.899 Other long term (current) drug therapy
CPT/HCPCS: 99283

== ENCOUNTER 2020-10-31 16:37 | Emergency (ER) | payer MEDICAID ==
[~2020-10-31] VITALS: Ht 165.1 cm; Wt 36.4 kg
[~2020-10-31 16:37] MED LIST changes: +ONDA4TAB12 PO; -PANT40TA4 PO; +PANT40TA54 PO; +calcium chloride 100 MG/1 ML inj IV ONE; +dextrose 50%-water 50ml dispensing syringe IV ONE; +epiNEPHrine 0.1mg/ml 10ml syringe ONE; +sodium bicarbonate (8.4%) 1 mEq/ml syringe ONE
--- NOTE | 2020-10-31 17:38 | NUR ---
PT HAD A PRESCRIPTION FORM ON HIM. LOOKED UP THE ADDRESS ON IT AND IT SAYS THE ADDRESS IS FOR [facility]. CALLED TO SEE IF THEY ARE FAMILIAR WITH THE PT. DELL, A VOLUNTEER, ANSWERED THE PHONE AND STATES HE ISN'T SURE IF HE RECOGNIZES THE PT'S NAME AND HE DOES NOT HAVE ANY DOCUMENTATION ON HIM. BUT THE STAFF WILL BE THERE IN THE MORNING AND THEY WOULD HAVE INFO ON HIM IF HE HAS BEEN THERE. LOOKING FOR NEXT OF KIN.
--- NOTE | 2020-10-31 17:51 | NUR ---
CALLED JORY TO GET A HOLD OF THE WELL DRILL OPERATOR. TALKED WITH LA AND SHE WILL CONTACT THE WELL DRILL OPERATOR FOR US. WAITING CHILDCARE AIDE BACK.
--- NOTE | 2020-10-31 18:21 | NUR ---
SEE CPR PAPER CHART FOR DOCUMENTATION
--- NOTE | 2020-10-31 18:23 | NUR ---
HAVE CALLED THE DONOR NETWORK. WAITING FOR CALL BACK TO ANSWER MORE QUESTIONS.
--- NOTE | 2020-10-31 18:58 | NUR ---
DONOR NETWORK STATES TO RELEASE PT. HE DOES NOT MEET DONOR CRITERIA.
== END 2020-10-31 22:34 | disposition expired ==
LOC: MERGE 16:37 → ER 16:37 → EDBD 16:37 → ER 22:34
DX: I46.9 Cardiac arrest, cause unspecified (principal); I10 Essential (primary) hypertension; E03.9 Hypothyroidism, unspecified; F17.200 Nicotine dependence, unspecified, uncomplicated; N17.9 Acute kidney failure, unspecified; Z59.0 Homelessness; Z87.820 Personal history of traumatic brain injury
CPT/HCPCS: 82948; 92950; 99285; J0171; 99283